=== PATIENT | male | born 1955 | race Caucasian/White ===

== ENCOUNTER 2019-01-11 08:26 | Inpatient (IN) | payer MEDICARE ==
[~2019-01-11] VITALS: Ht 177.8 cm; Wt 124.5 kg
[~2019-01-11 08:26] MED LIST: ALLO300 PO; AMLO5 PO; AMOCLA500 PO; Bumetanide1 MG PO; DOCU100 PO; FAMO20 PO; GLYMET5; LISI20; METPRE4DP PO; OXYACE5T PO; POTA10T PO; ROSI2; ROSU10TA
[2019-01-11] MEDS ORDERED: AMLO10 PO (09:28)
[2019-01-11 13:19] LABS: International Normalized Ratio 0.95; Prothrombin Time Results 10.1 Sec (9.7-11.5)
--- NOTE | 2019-01-11 13:24 | NUR ---
ARRIVAL PT ARRIVED TO UNIT APPROX. 0915 VIA WHEELCHAIR A DIRECT ADMISSION FROM [facility]. OREINTED PT TO ROOM, UNIT AND POLICIES. PT ABLE TO AMBUALTE FROM WHEELCHAIR TO BED AND TOLERATED WELL. PT DENIES ANY DIZZINESS OR LIGHTHEADEDNESS WITH THIS. ADDMISSION PROCESS COMPLETED. PT VITAL SIGNS STABLE, ALTHOUGH PT BLOOD PRESSURE ELEVATED. PRN MEDICAITON FOR HYPERTENSION GIVEN PER EMAR. CONTINUED TO MONITOR THIS THE DAY PROGRESSED. PT HEAR RHTYHM SINUS AMANDA IN 50'S. OCCASIONAL PT HEART RATE INCREASED TO 60'S AND OTHER TIMES PT HEART RATE DECREASES TO 40'S. PT HAS HOME CPAP WITH HIM. R.T. WAS IN TO REVIEW THIS. PT ABLE TO AMBUALTE AROUND ROOM. PT REPROTS HE FEELS THOUGH HIS HEART RATE IS RACING AND LIKE ITS POUNDING WHEN HE DOES ACTIVITY. BUT PT HEART RATE AVERAGES AROUND 50'S EVEN WITH ACTIVITIY. BED IN LOW POSITION, CALL LIGHT IN REACH AND PT DENIES ANY NEEDS AT THIS TIME. WILL CONTINUE TO MONITOR.
--- NOTE | 2019-01-11 15:20 | NUR ---
NOTE PT WAS ABLE TO PARTICIPATE WITH PHYSICAL THERAPY. THE P.T. WAS ABLE TO TAKE PT FOR WALK TO SEE HOW PT HEART RATE DOES WITH WALKING. PT WAS ONLY ABOUT TO TOLERATE WALKING AROUND FOR APPROX 5 MINUTES DUE TO SHORTNESS OF BREATH. DURING THERE FIVE MINUTES OF WALKING THE PHYSICIAL THERAPIST REPROTED THAT PT HEART RATE AVERAGED IN 50'S-60'S, ALTHOUGHT PT HEART RATE DROPPED DOWN TO 45 A FEW TIMES. THIS WAS VARIFIED ON THE TELEMETRY MONITORS WELL.
--- NOTE | 2019-01-11 17:40 | NUR ---
SHIFT SUMMARY PT PLEASANT, COOPERATIVE AND USES CALL LIGHT APPROPRIATELY. PT REMAINS A&OX4. PT BLOOD PRESSURE BEGAN TO COME DOWN LAST SBP WAS IN 150'S. HEART RHTYHM REMAINS SINUS BRADYCARDIA TO NSR. PT HEART RATE CURRENLTY IN 60'S WITH PT SITTING UP AT SIDE OF BED TALKING WITH FAMILY. PT REPROTS THAT HE HAD NOT TAKEN HIS DOSES OF LASIX FOR 11 DAYS. PT ALSO PREPORTS MISSING MORNING DOSE OF POTASSIUM. SO THESE MEDICATIONS WERE GIVEN PER EMAR. PT ABLE TO AMBULATE TO BATHROOM NEEDED AND TOLERATES WELL, BUT DOES REPORT SOB WITH ACTIVITY. PT REMAINS ON ROOM AIR. WHILE PT WAS SLEEPING PT HEART RATE WAS AVERAGING 40'S BUT DIPPED DOWN TO 38 A COUPLE OF TIME. FAMILY AT BEDSIDE. BED IN LOW POSITION, CALL LIGHT IN REACH AND PT DENIES ANY NEEDS AT THIS TIME. WILL CONTINUE TO MONITOR UNTIL HANDOFF TO NIGHTSHIFT RN.
[2019-01-11] MEDS ORDERED: ALBU90OI INH (19:17)
[2019-01-11] MEDS ORDERED: LOSA50 PO (19:18)
[2019-01-11] MEDS ORDERED: FARXIGA10 MG PO (19:19)
[2019-01-11] MEDS ORDERED: METF500C PO (19:20)
[2019-01-11] MEDS ORDERED: Pravachol40 MG PO (19:21)
[2019-01-11] MEDS ORDERED: GLIP5ER PO (19:34)
[2019-01-11] MEDS ORDERED: HYDR1TAB94 PO ×2 (19:35→19:36)
[2019-01-11] MEDS ORDERED: ASPI81CH PO (19:36)
[2019-01-11] MEDS ORDERED: FISH OIL 500 M1 EACH PO (19:37)
[2019-01-11] MEDS ORDERED: AZO CRANBERRY1 EAC1 PO (19:37)
--- NOTE | 2019-01-11 19:45 | NUR ---
PATIENT SBP 210 GIVEN HS NORVASC AND PRN HYDRALAZINE. PATIENT UP TO THE BATHROOM. PATIENT VERY SHORT OF BREATH. PATIENT STATES THAT HE WAS NOT ABLE TO TAKE HIS LASIX OVER THE LAST 11 DAYS DUE TO NOT BEING ABLE TO RENEW THE MED AT PHARMACY. PATIENT UNHAPPY ABOUT HAVING TO BE IN THE HOSPITAL.
--- NOTE | 2019-01-11 20:10 | NUR ---
NOTIFIED DR. JACK OF BLOOD PRESSURES. ASKED IF HE WANTED TO CHANGE MEDICATIONS. NO CHANGES AT THIS TIME.
--- NOTE | 2019-01-11 20:57 | NUR ---
PATIENT SBP DOWN TO 170'S. PATIENT DENIES ANY NEEDS AT THIS TIME. PATIENT HAS HOME TRILOGY ON.
--- NOTE | 2019-01-11 23:43 | NUR ---
PATIENT SITTING UP AT SIDE OF BED. STATES HE IS AWAKE NOW. GIVEN A HALF SANDWICH AT REQUEST. DENIES ANY OTHER NEEDS AT THIS TIME.
--- NOTE | 2019-01-12 01:03 | NUR ---
PATIENT LAYING IN BED WITH TRILOGY ON AND APPEARS TO BE SLEEPING COMFORTABLY.
[2019-01-12 04:30] LABS: BASOPHILS ABSOLUTE AUTO 0.05 K/mm3 (0.00-0.23); BASOPHILS PERCENT AUTO 1 % (0-2); EOSINOPHILS ABSOLUTE AUTO 0.23 K/mm3 (0.00-0.68); EOSINOPHILS PERCENT AUTO 3 % (0-6); Hematocrit 43.8 % (37.0-53.0); Hemoglobin 14.1 g/dL (13.5-17.5); IMMATURE GRAN ABSOLUTE AUTO 0.02 K/mm3 (0.00-0.10); IMMATURE GRAN PERCENT AUTO 0 % (0-1); LYMPHOCYTES ABSOLUTE AUTO 0.99 K/mm3 (0.84-5.20); LYMPHOCYTES PERCENT AUTO 12 % (21-46); MONOCYTES ABSOLUTE AUTO 0.62 K/mm3 (0.16-1.47); MONOCYTES PERCENT AUTO 7 % (4-13); Mean Corpuscular HGB 30.5 pg (26.0-34.0); Mean Corpuscular HGB Conc 32.2 g/dL (31.5-36.5); Mean Corpuscular Volume 95 fL (80-100); Mean Platelet Volume 11.1 fL (9.1-12.4); NEUTROPHILS ABSOLUTE AUTO 6.69 K/mm3 (1.96-9.15); NEUTROPHILS PERCENT AUTO 78 % (41-73); Platelet Count 123 K/mm3 (150-400); RDW Coefficient Variation 14.3 % (11.7-14.2); Red Blood Cell Count 4.63 M/mm3 (4.30-5.90)
[2019-01-12 04:50] LABS: Alanine Aminotransfer (ALT/SGP 29 U/L (12-78); Albumin, Blood 3.4 g/dL (3.4-5.0); Albumin/Globulin Ratio 1.2 (0.8-1.8); Alk Phos 94 U/L (50-136); Anion Gap 7 mmol/L (6-16); Aspartate Aminotrans (AST/SGOT 10 U/L (12-37); Bilirubin, Total 0.6 mg/dL (0.1-1.0); Blood Urea Nitrogen 25 mg/dL (8-24); Bun/Creatinine Ratio 25.9 (12.0-20.0); CO2, Blood 22 mmol/L (21-32); Calcium, Blood 8.8 mg/dL (8.5-10.1); Chloride, Blood 116 mmol/L (98-108); Creatinine, Blood 0.96 mg/dL (0.60-1.20); Globulin, Blood 2.8 g/dL (2.2-4.0); Glomerular Filtration Rate >60 (60-); Glucose, Blood 122 mg/dL (70-99); Magnesium, Blood 2.2 mg/dL (1.6-2.4); Phosphorus, Blood 4.1 mg/dL (2.5-4.9); Potassium, Blood 4.2 mmol/L (3.5-5.5); Sodium, Blood 145 mmol/L (136-145); Total Protein, Blood 6.2 g/dL (6.4-8.2); Uric Acid, Blood 5.7 mg/dL (3.5-7.2)
--- NOTE | 2019-01-12 05:28 | NUR ---
PATIENT UP AND DOWN IN ROOM INDEPENDENTLY IN ROOM. PATIENT HAS BEEN MAINTAINING MID TO HIGH 90'S ON ROOM AIR WHILE AWAKE AND CPAP WHEN ASLEEP. PATIENT SBP MAINTAINING BELOW 160 AT THIS TIME. PATIENT HAS ONLY RECIEVED ONE DOSE OF HYDRALAZINE. PATIENT DENIES ANY PAIN THROUGH THE NIGHT.
--- NOTE | 2019-01-12 07:51 | NUR ---
NURSING PCU DAYSHIFT: Assumed care of pt at approx 0700. A/O, pleasant, cooperative w/care. Denies any pain/discomfort at rest. Mild general weakness noted. Skin is fairly intact with small/weeping abrasion to R holbrook. Tele in place, afib w/HR 40-50's, murmur auscultated, no c/o CP/pressure, HTN noted prior to a.m. meds, 2+ BLE edema. L/S fairly cta t/o, reports of dyspnea w/exertion, occ productive cough, O2 sat mid 90's while wearing home CPAP at rest, continuous bedside O2 monitoring. Abd SNT, BT+, voiding w/o difficulty per pt. PIV x1, s/l. Pt denies any current needs or questions regarding plan of care. Call light in reach and pt is able to use w/o difficulty. Awaiting rounding from PMD, cont to monitor for any changes.
[2019-01-12 16:19] LABS: Prothrombin Time Results 10.6 Sec (9.7-11.5)
--- NOTE | 2019-01-12 17:04 | NUR ---
NURSING PCU DAYSHIFT SUMMARY: Pt has been in good spirits t/o the shift. Seen by cardiology this a.m., consent completed for pacer placement this afternoon. Though respiratory status stable at rest w/CPAP in place, pt experienced dyspnea w/minimal exertion and while on RA, O2 sat maintained >90%. Spent majority of day sitting on edge of bed visiting w/friends/family and/or talking on phone. Pt able to explain procedure fairly accurately and only expressed concern of post procedure pain management. At approx 1530, pt transported to HC via bed for pacer placement accompanied by HC staff x3. No s/s of acute distress at this time, denied any questions/needs. Awaiting post procedure arrival to unit for recovery. Will monitor until rpt is given to EMIGDIO RN.
--- NOTE | 2019-01-12 19:36 | NUR ---
PATIENT SBP UP IN THE 190'S GIVEN HYDRALAZINE PRN AND HS NORVASC EARLY. PATIENT DENIES ANY PAIN OR NEEDS. STATES HE FEELS MUCH BETTER THAN YESTERDAY. BREATHING IS EASIER AND IS NOT USING ACCESSORY MUSCLES TONIGHT. PATIENT REMAINS ON ROOM AIR. PACER SITE HAS DRESSING ON THAT IS INTACT WITH NO DRAINAGE AT THIS TIME. PATIENT HAS SOME SWELLING NOTED BY CLAVICLE ABOVE SITE AND DIRECTLY BELOW SITE. WILL CONTINUE TO MONITOR.
--- NOTE | 2019-01-13 04:04 | NUR ---
CALLED DR. ORO ABOUT PATIENT SWELLING AROUND PACEMAKER AND NEAR CLAVICLE WHICH HAS SEEMED TO NCREASE A LITTLE MORE. PATIENT COMPLAINING OF 10/10 PAIN AND STATES JUST THE FEEL OF THE GOWN ON HIS SHOULDER HURTS. ICE PLACE ON SITE TO HELP WITH SWELLING. DOCTOR STATES TO CONTINUE ICE AND GIVEN PRN'S FOR PAIN. SHE WILL HAVE SOMEONE COME LOOK AT IT THIS MORNING.
[2019-01-13 04:10] LABS: BASOPHILS ABSOLUTE AUTO 0.06 K/mm3 (0.00-0.23); BASOPHILS PERCENT AUTO 1 % (0-2); EOSINOPHILS ABSOLUTE AUTO 0.24 K/mm3 (0.00-0.68); EOSINOPHILS PERCENT AUTO 2 % (0-6); Hemoglobin 14.8 g/dL (13.5-17.5); IMMATURE GRAN ABSOLUTE AUTO 0.04 K/mm3 (0.00-0.10); IMMATURE GRAN PERCENT AUTO 0 % (0-1); LYMPHOCYTES ABSOLUTE AUTO 1.06 K/mm3 (0.84-5.20); LYMPHOCYTES PERCENT AUTO 10 % (21-46); MONOCYTES ABSOLUTE AUTO 0.82 K/mm3 (0.16-1.47); MONOCYTES PERCENT AUTO 8 % (4-13); Mean Corpuscular HGB Conc 32.2 g/dL (31.5-36.5); Mean Corpuscular Volume 93 fL (80-100); Mean Platelet Volume 10.6 fL (9.1-12.4); NEUTROPHILS ABSOLUTE AUTO 8.21 K/mm3 (1.96-9.15); NEUTROPHILS PERCENT AUTO 79 % (41-73); Platelet Count 166 K/mm3 (150-400); RDW Coefficient Variation 14.3 % (11.7-14.2); RDW Standard Deviation 49.6 fL (35.1-46.3); Red Blood Cell Count 4.93 M/mm3 (4.30-5.90); White Blood Cell Count 10.43 K/mm3 (4.00-11.30)
[2019-01-13 04:50] LABS: Alanine Aminotransfer (ALT/SGP 28 U/L (12-78); Albumin, Blood 3.8 g/dL (3.4-5.0); Albumin/Globulin Ratio 1.3 (0.8-1.8); Alk Phos 102 U/L (50-136); Anion Gap 7 mmol/L (6-16); Aspartate Aminotrans (AST/SGOT 14 U/L (12-37); Bilirubin, Total 0.8 mg/dL (0.1-1.0); Blood Urea Nitrogen 26 mg/dL (8-24); Bun/Creatinine Ratio 23.4 (12.0-20.0); CO2, Blood 26 mmol/L (21-32); Calcium, Blood 9.1 mg/dL (8.5-10.1); Chloride, Blood 112 mmol/L (98-108); Creatinine, Blood 1.11 mg/dL (0.60-1.20); Glomerular Filtration Rate >60 (60-); Glucose, Blood 107 mg/dL (70-99); Sodium, Blood 145 mmol/L (136-145); Total Protein, Blood 6.8 g/dL (6.4-8.2)
--- NOTE | 2019-01-13 05:05 | NUR ---
PATIENT STATES HIS PAIN IS NOW A 4/10 AND IS FEELING MUCH BETTER.
--- NOTE | 2019-01-13 06:28 | NUR ---
PATIENT SWELLING TO PACEMAKER SIGHT INCREASED THROUGH NIGHT. ICE IN PLACE. PAIN MANAGABLE AT THIS TIME. PATIENT DENIES ANY NEEDS AT THIS TIME. BP CONTINUES TO BE ELEVATED, HYDRALAZINE HAS BEEN GIVEN EVERY 4 HOURS TONIGHT. PATIENT UP TO THE BATHROOM INDEPENDENTLY AND MOVING AROUND IN BED INDEPENDENTLY.
--- NOTE | 2019-01-13 07:26 | NUR ---
NURSING PCU DAYSHIFT: Assumed care of pt at approx 0700. A/O, very pleasant, cooperative w/care. Mild general weakness though able to reposition and ambulate independently, call appropriately if assistance is needed. No skin breakdown noted, incision w/dressing in place to LCW from recent pacer placement. Very mild tissue inflammation surrounding site w/a small amount of bruising, no bleed or hematoma noted, pt c/o 6/10 LCW discomfort, LUE remains in sling. Tele in place, V-paced w/HR 60's, no c/o CP/pressure, SBP 170's prior to a.m. meds, trace BLE edema. L/S w/faint scattered wheeze and fine bibasilar crackles, dyspnea w/exertion which has improved from previous day, occ prod cough, O2 sat mid 90's, uses home CPAP during periods of rest. Abd SNT, BT+, voiding w/o difficulty. PIV x1, s/l. Pt denies any current needs or questions regarding plan of care. Pacer interrogation completed this a.m., update provided to social security benefits interviewer regarding pacer site. Pt OOB in chair, call light in reach, awaiting rounding from cardio and PMD, cont to monitor for any changes.
[2019-01-13 07:51] LABS: International Normalized Ratio 1.09; Prothrombin Time Results 11.5 Sec (9.7-11.5)
--- NOTE | 2019-01-13 17:25 | NUR ---
NURSING PCU DAYSHIFT SUMMARY: Pt has continued to do well t/o shift. BP has improved w/med changes. Seen by PMD and senior power scheduler, new d/o received. LCW pacer site remains stable w/no changes noted since initial assessment. Coumadin discontinued per senior power scheduler, anticoagulation will be discussed at f/u cardiology appt. Family currently at bedside. Pt has remained in good spirits t/o the shift and is anticipating discharge home tomorrow. Respiratory status continues to improve and O2 sats have been stable on RA. Plan for a curing room worker to meet w/pt in a.m. to provide coumadin/cardiac diet education. Pt denies any questions/needs at this time, call light in reach, cont to monitor until rpt is given to NOC RN.
[2019-01-14 04:15] LABS: BASOPHILS ABSOLUTE AUTO 0.05 K/mm3 (0.00-0.23); BASOPHILS PERCENT AUTO 1 % (0-2); EOSINOPHILS ABSOLUTE AUTO 0.27 K/mm3 (0.00-0.68); EOSINOPHILS PERCENT AUTO 3 % (0-6); Hematocrit 46.2 % (37.0-53.0); Hemoglobin 14.8 g/dL (13.5-17.5); IMMATURE GRAN ABSOLUTE AUTO 0.03 K/mm3 (0.00-0.10); IMMATURE GRAN PERCENT AUTO 0 % (0-1); LYMPHOCYTES ABSOLUTE AUTO 1.14 K/mm3 (0.84-5.20); LYMPHOCYTES PERCENT AUTO 13 % (21-46); MONOCYTES ABSOLUTE AUTO 0.78 K/mm3 (0.16-1.47); MONOCYTES PERCENT AUTO 9 % (4-13); Mean Corpuscular HGB 30.3 pg (26.0-34.0); Mean Corpuscular Volume 95 fL (80-100); Mean Platelet Volume 10.7 fL (9.1-12.4); NEUTROPHILS ABSOLUTE AUTO 6.22 K/mm3 (1.96-9.15); NEUTROPHILS PERCENT AUTO 73 % (41-73); Platelet Count 143 K/mm3 (150-400); RDW Coefficient Variation 14.5 % (11.7-14.2); RDW Standard Deviation 50.5 fL (35.1-46.3); Red Blood Cell Count 4.89 M/mm3 (4.30-5.90); White Blood Cell Count 8.49 K/mm3 (4.00-11.30)
[2019-01-14 04:30] LABS: International Normalized Ratio 1.05; Prothrombin Time Results 11.1 Sec (9.7-11.5)
[2019-01-14 04:44] LABS: Albumin, Blood 3.5 g/dL (3.4-5.0); Albumin/Globulin Ratio 1.1 (0.8-1.8); Bilirubin, Total 0.7 mg/dL (0.1-1.0); Bun/Creatinine Ratio 26.6 (12.0-20.0); Calcium, Blood 8.9 mg/dL (8.5-10.1); Creatinine, Blood 1.39 mg/dL (0.60-1.20); Globulin, Blood 3.1 g/dL (2.2-4.0); Potassium, Blood 4.2 mmol/L (3.5-5.5); Total Protein, Blood 6.6 g/dL (6.4-8.2)
--- NOTE | 2019-01-14 05:33 | NUR ---
PATIENT TIRED TONIGHT AND HAS BEEN ABLE TO SLEEP WELL TONIGHT. PATIENT NEEDED HYDRALAZINE THIS AM DUE TO SBP OF 216. PATIENT DENIES ANY PAIN OR NEEDS. PATIENT INDEPENDENT IN BED AND ROOM. CALL LIGHT WITH IN REACH.
--- NOTE | 2019-01-14 08:08 | NUR ---
pt sitting up in bed watching tv. states he is doing ok, sleeping some, pacer site is painful, cooperative with care, follows commands well, lungs are clear in upper fair, dim in bases, resp even and unlabored at rest, was reported that he becomes dyspnic with activity, pt states sob comes and goes, is currently on r/a, reports a productive cough but doesn't know what color it is, hrr, tele in place running vpaced at 61 at this time, +1 edema noted to b/l le, ppp+2, cap refill <3sec, vs stable afebrile, iv site is clear and patent, btx4, abd round soft nontender, pt states he has some kidney pain at times, voids without diff, skin c/w/d except pacer site to lcw has a dressing in place, some swelling noted, bruising noted, reported that Dr. meza, ac farmer, call light in reach.
--- NOTE | 2019-01-14 11:39 | NUR ---
pt has been discharged to home, his is here, went over discharge instructions with him and her, they verbalized understanding. iv x2 removed intact, left via wheelchair with space control supervisor and in attendence.
[2019-01-14] MEDS ORDERED: ATEN25 PO (16:54)
[2019-01-14] MEDS ORDERED: HYDRA25 PO (16:55)
[2019-01-14] MEDS ORDERED: Isosorbide Mono30 MG PO (16:56)
[2019-01-14] MEDS ORDERED: METO2.5 PO (16:57)
[2019-01-14] MEDS ORDERED: SPIR25 PO (16:58)
--- NOTE | 2019-01-14 18:20 | NUR ---
PT HAS BEEN DISCHARGED TO HOME, WENT OVER ALL DISCHARGE INSTRUCTIONS, INCLUDING PACER INSTRUCTIONS AND APPT, HE HAS PRINTED MATERIAL FOR NEW MEDICATIONS, IV REMOVED INTACT, HAS AN ARM SLING FOR HIS LEFT ARM, NEW MEDICATIONS WERE FAXED TO [facility]. WAITING FOR RIDE, CALL LIGHT IN REACH.
--- NOTE | 2019-01-14 19:00 | NUR ---
PT LEFT VIA AMBULATION HIS RIDE IS HERE. HE HAS ALL BELONGINGS.
== END 2019-01-14 18:17 | disposition home health service (06) | DRG 242 ==
LOC: PCU 08:26
PROVIDERS: Internal Medicine Cardiovascular Disease; ADMIT Hospitalist
PROC: 0JH604Z Insertion of Pacemaker, Single Chamber into Chest Subcutaneous Tissue and Fascia, Open Approach (ICD-10-PCS; principal; 2019-01-12)
PROC: 02HK3JZ Insertion of Pacemaker Lead into Right Ventricle, Percutaneous Approach (ICD-10-PCS; 2019-01-12)
DX: I48.91 Unspecified atrial fibrillation (principal); I50.33 Acute on chronic diastolic (congestive) heart failure; I13.0 Hypertensive heart and chronic kidney disease with heart failure and stage 1 through stage 4 chronic kidney disease, or unspecified chronic kidney disease; I49.5 Sick sinus syndrome; N18.9 Chronic kidney disease, unspecified; E11.22 Type 2 diabetes mellitus with diabetic chronic kidney disease; E66.01 Morbid (severe) obesity due to excess calories; G47.33 Obstructive sleep apnea (adult) (pediatric); I35.0 Nonrheumatic aortic (valve) stenosis; D69.6 Thrombocytopenia, unspecified; M19.90 Unspecified osteoarthritis, unspecified site; J44.9 Chronic obstructive pulmonary disease, unspecified; E78.5 Hyperlipidemia, unspecified; Z88.8 Allergy status to other drugs, medicaments and biological substances; Z79.84 Long term (current) use of oral hypoglycemic drugs; Z79.82 Long term (current) use of aspirin; Z79.4 Long term (current) use of insulin; Z79.899 Other long term (current) drug therapy; Z68.39 Body mass index [BMI] 39.0-39.9, adult
CPT/HCPCS: 33207; 36415; 71045; 71046; 80053; 82947; 83735; 83880; 84100; 84443; 84484; 84550; 85025; 85610; 85730; 86850; 86900; 86901; 93306; 94762; 97161; 97530; 99152; 99153; C1786; C1898; J0360; J0690; J1644; J1940; J2250; J3010; J7030; J7040

== ENCOUNTER 2020-04-13 11:43 | Day surgery (SDC) | payer MEDICARE ==
[~2020-04-13] VITALS: Ht 177.8 cm; Wt 129.4 kg
[~2020-04-13 11:43] MED LIST changes: +ALBU90OI INH; +AMLO10 PO; +ASPI81CH PO; +ASPIR 8181 M1 PO; +ATEN25 PO; +AZO CRANBERRY1 EAC1 PO; +FARXIGA10 MG PO; +FISH OIL 500 M1 EACH PO; +FURO40 PO; +GLIP10 PO; +GLIP5ER PO; +GLUCOPHAGE1000 M1 PO; +HYDR1TAB94 PO; +HYDRA25 PO; +Isosorbide Mono30 MG PO; +LOSA50 PO; +LOSARTAN POTAS100 M1 PO; +METF500C PO; +METO2.5 PO; +Norco 5-325 Ta1 EACH PO; +Potassium Chlo10 ME1 PO; +Pravachol40 MG PO; +SPIR25 PO; +STIOLTO RESPIMAT4 G1 INH; +Vitamin D1000 UNI1 PO
== END 2020-04-13 14:10 | disposition home or self-care (01) ==
LOC: ORSCSDS 11:43
PROVIDERS: Internal Medicine Gastroenterology
PROC: 0DBN8ZX Excision of Sigmoid Colon, Via Natural or Artificial Opening Endoscopic, Diagnostic (ICD-10-PCS; principal; 2020-04-13 13:15)
PROC: 0DBP8ZX Excision of Rectum, Via Natural or Artificial Opening Endoscopic, Diagnostic (ICD-10-PCS; principal; 2020-04-13 13:15)
PROC: 3E0H87Z Introduction of Electrolytic and Water Balance Substance into Lower GI, Via Natural or Artificial Opening Endoscopic (ICD-10-PCS; principal; 2020-04-13 13:15)
PROC: 0DBL8ZX Excision of Transverse Colon, Via Natural or Artificial Opening Endoscopic, Diagnostic (ICD-10-PCS; principal; 2020-04-13 13:15)
PROC: 0DBK8ZX Excision of Ascending Colon, Via Natural or Artificial Opening Endoscopic, Diagnostic (ICD-10-PCS; principal; 2020-04-13 13:15)
DX: Z12.11 Encounter for screening for malignant neoplasm of colon (principal); D12.2 Benign neoplasm of ascending colon; D12.3 Benign neoplasm of transverse colon; D12.8 Benign neoplasm of rectum; K64.8 Other hemorrhoids; J44.9 Chronic obstructive pulmonary disease, unspecified; G47.33 Obstructive sleep apnea (adult) (pediatric); E11.9 Type 2 diabetes mellitus without complications; E78.5 Hyperlipidemia, unspecified; F17.210 Nicotine dependence, cigarettes, uncomplicated; Z79.82 Long term (current) use of aspirin; Z79.84 Long term (current) use of oral hypoglycemic drugs; Z79.899 Other long term (current) drug therapy
CPT/HCPCS: 82947; 88305; J2704; J7120

== ENCOUNTER → 2020-06-22 | Outpatient (CLI) | payer OTHER ==
[~2020-06-22] MED LIST changes: +ALLO100 PO; +CILO100 PO; +CLOP75 PO; +DEXL60CA3 PO
== END | disposition home or self-care (01) ==
LOC: LAB SHORT 16:04 → LAB EV 16:04
DX: R79.89 Other specified abnormal findings of blood chemistry (principal)
CPT/HCPCS: 87086

== ENCOUNTER 2020-08-14 06:38 | Day surgery (SDC) | payer OTHER ==
[~2020-08-14] VITALS: Ht 177.8 cm; Wt 127.0 kg
[~2020-08-14 06:38] MED LIST changes: -ALLO100 PO; -CILO100 PO; -CLOP75 PO; -DEXL60CA3 PO
--- NOTE | 2020-08-14 10:07 | NUR ---
PT RETURNED TO RECOVERY ROOM IN BED. RIGHT FEMORAL GROIN SITE SOFT NON-TENDER WITH NO HEMATOMA, NO PULSATILE BLEEDING AND INTACT DRESSING. PT DENIES CHEST PAIN. CALL LIGHT IN REACH.
--- NOTE | 2020-08-14 10:36 | NUR ---
DR GUADALUPE IN ROOM TO SEE PT.
[2020-08-14] MEDS ORDERED: CLOP75 PO (10:41)
--- NOTE | 2020-08-14 11:53 | NUR ---
DISCHARGE INSTRUCTIONS REVIEWED ALL QUESTIONS ANSWERED.
--- NOTE | 2020-08-14 11:54 | NUR ---
NO CHANGES TO R FEMORAL GROIN SITE; SOFT NON-TENDER WITH NO HEMATOMA, NO PULSATILE BLEEDING AND INTACT DRESSING.
--- NOTE | 2020-08-14 12:44 | NUR ---
20 G IV DISCONTINUED FROM LEFT AC WITH INTACT CANNULA. PT ESCORTED OUT VIA WHEELCHAIR ESCORT.
[2020-10-03] MEDS ORDERED: CILO100 PO (14:55)
[2020-10-03] MEDS ORDERED: FARXIGA10 MG PO (14:55)
[2020-10-03] MEDS ORDERED: DEXL60CA3 PO (14:56)
[2020-10-03] MEDS ORDERED: GLIP5ER PO (14:56)
[2020-10-03] MEDS ORDERED: FURO40 PO (14:56)
== END 2020-08-14 12:45 | disposition home or self-care (01) ==
LOC: MHTC 06:38
DX: I70.213 Atherosclerosis of native arteries of extremities with intermittent claudication, bilateral legs (principal)
CPT/HCPCS: 37221; 37227; 75625; 75716; 75774; 76937; 82947; 85347; 99152; 99153; C1714; C1760; C1769; C1874; C1876; C1884; C1887; C1894; C2623; J1644; J2250; J3010; J7030; Q9967

== ENCOUNTER 2020-10-04 08:36 | Day surgery (SDC) | payer OTHER ==
[~2020-10-04] VITALS: Ht 177.8 cm; Wt 129.5 kg
[~2020-10-04 08:36] MED LIST changes: +CILO100 PO; +CLOP75 PO; +DEXL60CA3 PO
[2020-10-04] MEDS ORDERED: ALLO100 PO (09:19)
--- NOTE | 2020-10-04 09:32 | NUR ---
PATIENT ARRIVED VIA WHEELCHAIR, ADMISSION COMPLETED. PIV STARTED TO THE RIGHT FOREARM. PATIENT BROUGHT OWN CPAP AND RN AT THE BEDSIDE TO GO OVER THE CPAP SETUP WITH THE PATIENT.
--- NOTE | 2020-10-04 13:13 | NUR ---
PATEINT RETURNED FROM THE CATHLAB S/P PERIPHERAL INTERVENTION TO THE RIGHT LEG. LEFT GROIN ACCESS CLOSED WITH CLOSURE DEVICE. PAITENT PLACED ON THE MONITOR AND SBAR RECEIVED FROM AVELINO OVIEDO. VVS. NO PAIN NOTED. TRAY TO THE BEDSIDE AND PAITENT DRINKING WATER WITH ASSISTANCE. HOB FLAT. BED IN REVERSE TRENDELENBERG. CALL LIGHT IN REACH.
--- NOTE | 2020-10-04 14:00 | NUR ---
1345 PATIENT REPOSITIONED UP IN THE BED AND HOB UP 30 DEGREES. LUNCH TRAY SERVED AND PATIENT FED SELF.
--- NOTE | 2020-10-04 14:45 | NUR ---
PATIENT ALLOWED TO SIT UP ON THE SIDE OF THE BED AND DANGLE LEGS. LEFT GROIN SITE UNCHANGED. CDI, TEGADERM IN PLACE. NO HEMATOMA AND NO BLEEDING. NO PAIN NOTED.
--- NOTE | 2020-10-04 14:47 | NUR ---
PATIENT IS REVIEWING DISCHARGE INSTRUCTIONS AND ALL QUESTIONS ANSWERED.
--- NOTE | 2020-10-04 14:54 | NUR ---
PATEINT UP AND DRESSING. PIV REMOVED, PRESSURE DRESSING APPLIED.
--- NOTE | 2020-10-04 15:13 | NUR ---
REVIEWED ALL DISCHARGED PAPERWORK. SIGNATURES OBTAINED. PATIENT DRESSED AND PIV REMOVED. CALLED FOR WHEELCHAIR TO THE ENTRANCE WHERE HI BROTHER IS PICKING HIM UP. FOLLOW UP APPOINTMENT IN 4 WEEKS.
== END 2020-10-04 16:18 | disposition home or self-care (01) ==
LOC: MHTC 08:36
DX: E11.51 Type 2 diabetes mellitus with diabetic peripheral angiopathy without gangrene (principal); I70.221 Atherosclerosis of native arteries of extremities with rest pain, right leg; I70.212 Atherosclerosis of native arteries of extremities with intermittent claudication, left leg; J44.9 Chronic obstructive pulmonary disease, unspecified; I48.91 Unspecified atrial fibrillation; E11.22 Type 2 diabetes mellitus with diabetic chronic kidney disease; N18.9 Chronic kidney disease, unspecified; I25.10 Atherosclerotic heart disease of native coronary artery without angina pectoris; E78.5 Hyperlipidemia, unspecified; M10.9 Gout, unspecified; E11.40 Type 2 diabetes mellitus with diabetic neuropathy, unspecified; G47.33 Obstructive sleep apnea (adult) (pediatric); I49.5 Sick sinus syndrome; F17.200 Nicotine dependence, unspecified, uncomplicated; E66.01 Morbid (severe) obesity due to excess calories; Z95.0 Presence of cardiac pacemaker; Z88.8 Allergy status to other drugs, medicaments and biological substances; Z91.013 Allergy to seafood; Z79.82 Long term (current) use of aspirin; Z79.84 Long term (current) use of oral hypoglycemic drugs; Z68.41 Body mass index [BMI] 40.0-44.9, adult
CPT/HCPCS: 37225; 37228; 75716; 75774; 76937; 85347; 99152; 99153; C1714; C1725; C1757; C1760; C1769; C1884; C1887; C1894; C2623; C9772; J1644; J2250; J3010; J7030; J7050; Q9967

== ENCOUNTER 2021-02-14 07:13 | Day surgery (SDC) | payer OTHER ==
[~2021-02-14] VITALS: Ht 177.8 cm; Wt 130.0 kg
[~2021-02-14 07:13] MED LIST changes: +ALLO100 PO
[2021-02-14] MEDS ORDERED: OMEGA-3 FISH O1 EAC5 PO (07:27)
[2021-02-14] MEDS ORDERED: Crestor40 MG PO (07:27)
--- NOTE | 2021-02-14 08:41 | NUR ---
PRE ORDERS: PRE MEDICATED FOR ALLERGIES PER ORDERED PEPCID 20 MG IV BENADRYL 25 MG IV
[2021-02-14 10:54] LABS: PCO2 Arterial 36.5 mmHg (35-45); PO2 Arterial 76.5 mmHg (80-100); pH Blood Arterial 7.31 (7.35-7.45)
--- NOTE | 2021-02-14 12:15 | NUR ---
3mL AIR RELEASED FROM TR BAND. NO BLEEDING, OOZING OR HEMATOMA NOTED.
--- NOTE | 2021-02-14 12:30 | NUR ---
ALL AIR RELEASED FROM TR BAND. NO BLEEDING, OOZING OR HEMATOMA NOTED. VT DENIES ANY NEEDS AT THIS TIME. VSS. CARLOS CONTINUE TO MONITOR.
--- NOTE | 2021-02-14 14:20 | NUR ---
DISCHARGE PT AMBULATED TO RESTROOM AND DRESSED SELF WITH NO COMPLICATIONS. TR BAND REMOVED. NO BLEEDING, OOZING OR HEMATOMA NOTED. SITE CLEANED AND CLOTH DOT DRESSING APPLIED. PT STATES HIS UNDERSTANDING OF SITE CARE AND DC INSTRUCTIONS AND DENIES ANY QUESTIONS OR CONCERNS. PT DENIES ANY CP. IV DCD WITH CATH INTACT. PT TAKEN TO EXIT VIA WHEELCHAIR WHERE FRIEND WAS WAITING WITH VEHICLE.
== END 2021-02-14 15:27 | disposition home or self-care (01) ==
LOC: MHTC 07:13
PROVIDERS: Internal Medicine Cardiovascular Disease
DX: I25.118 Atherosclerotic heart disease of native coronary artery with other forms of angina pectoris (principal); I35.0 Nonrheumatic aortic (valve) stenosis; E11.22 Type 2 diabetes mellitus with diabetic chronic kidney disease; I13.0 Hypertensive heart and chronic kidney disease with heart failure and stage 1 through stage 4 chronic kidney disease, or unspecified chronic kidney disease; I50.9 Heart failure, unspecified; N18.9 Chronic kidney disease, unspecified; I48.20 Chronic atrial fibrillation, unspecified; E78.5 Hyperlipidemia, unspecified; E66.01 Morbid (severe) obesity due to excess calories; G47.33 Obstructive sleep apnea (adult) (pediatric); E11.51 Type 2 diabetes mellitus with diabetic peripheral angiopathy without gangrene; J44.9 Chronic obstructive pulmonary disease, unspecified; Z91.013 Allergy to seafood; Z88.8 Allergy status to other drugs, medicaments and biological substances; Z79.82 Long term (current) use of aspirin; Z79.02 Long term (current) use of antithrombotics/antiplatelets; Z79.84 Long term (current) use of oral hypoglycemic drugs; Z95.0 Presence of cardiac pacemaker; Z68.41 Body mass index [BMI] 40.0-44.9, adult
CPT/HCPCS: 82803; 82947; 85347; 93458; 99152; 99153; C1769; C1894; C8929; J1200; J1644; J2250; J3010; J7030; J7050; Q9957; Q9967

== ENCOUNTER 2024-02-10 10:59 | Emergency (ER) | payer OTHER ==
[~2024-02-10] VITALS: Ht 177.8 cm; Wt 128.8 kg
[2024-02-10 11:02] VITALS: BP 120/80
[2024-02-10 12:54] LABS: BASOPHILS ABSOLUTE AUTO 0.05 K/mm3 (0.00-0.23); BASOPHILS PERCENT AUTO 0 % (0-2); EOSINOPHILS ABSOLUTE AUTO 0.22 K/mm3 (0.00-0.68); EOSINOPHILS PERCENT AUTO 2 % (0-6); Hematocrit 28.4 % (37.0-53.0); Hemoglobin 9.1 g/dL (13.5-17.5); IMMATURE GRAN ABSOLUTE AUTO 0.15 K/mm3 (0.00-0.10); IMMATURE GRAN PERCENT AUTO 1 % (0-1); LYMPHOCYTES ABSOLUTE AUTO 0.64 K/mm3 (0.84-5.20); LYMPHOCYTES PERCENT AUTO 6 % (21-46); MONOCYTES ABSOLUTE AUTO 0.71 K/mm3 (0.16-1.47); MONOCYTES PERCENT AUTO 6 % (4-13); Mean Corpuscular HGB 30.6 pg (26.0-34.0); Mean Corpuscular Volume 96 fL (80-100); Mean Platelet Volume 12.3 fL (9.1-12.4); NEUTROPHILS ABSOLUTE AUTO 9.79 K/mm3 (1.96-9.15); NEUTROPHILS PERCENT AUTO 85 % (41-73); Platelet Count 158 K/mm3 (150-400); RDW Coefficient Variation 14.8 % (11.7-14.2); RDW Standard Deviation 50.7 fL (35.1-46.3); Red Blood Cell Count 2.97 M/mm3 (4.30-5.90); White Blood Cell Count 11.56 K/mm3 (4.00-11.30)
[2024-02-10 13:03] LABS: Albumin, Blood 3.2 g/dL (3.4-5.0); Albumin/Globulin Ratio 0.9 (0.8-1.8); Bilirubin, Total 0.4 mg/dL (0.1-1.0); Bun/Creatinine Ratio 39.3 (12.0-20.0); Calcium, Blood 9.3 mg/dL (8.5-10.1); Creatinine, Blood 2.62 mg/dL (0.60-1.20); Globulin, Blood 3.4 g/dL (2.2-4.0); Potassium, Blood 5.5 mmol/L (3.5-5.5); Total Protein, Blood 6.6 g/dL (6.4-8.2)
== END 2024-02-10 14:45 | disposition left against medical advice (07) ==
LOC: ER 10:59
PROVIDERS: Physician Assistant
DX: R07.9 Chest pain, unspecified (principal); K92.1 Melena; Z53.21 Procedure and treatment not carried out due to patient leaving prior to being seen by health care provider; J98.8 Other specified respiratory disorders; I70.90 Unspecified atherosclerosis
CPT/HCPCS: 71046; 80053; 83690; 84484; 85025; 93005; 93010

== ENCOUNTER → 2024-02-10 | Outpatient (CLI) | payer OTHER ==
[~2024-02-10] MED LIST changes: +Crestor40 MG PO; +OMEGA-3 FISH O1 EAC5 PO
[2024-02-10 08:37] LABS: BASOPHILS ABSOLUTE AUTO 0.07 K/mm3 (0.00-0.23); BASOPHILS PERCENT AUTO 1 % (0-2); EOSINOPHILS ABSOLUTE AUTO 0.31 K/mm3 (0.00-0.68); EOSINOPHILS PERCENT AUTO 3 % (0-6); Hematocrit 29.7 % (37.0-53.0); Hemoglobin 9.6 g/dL (13.5-17.5); IMMATURE GRAN ABSOLUTE AUTO 0.17 K/mm3 (0.00-0.10); IMMATURE GRAN PERCENT AUTO 2 % (0-1); LYMPHOCYTES ABSOLUTE AUTO 0.96 K/mm3 (0.84-5.20); LYMPHOCYTES PERCENT AUTO 8 % (21-46); MONOCYTES ABSOLUTE AUTO 0.92 K/mm3 (0.16-1.47); MONOCYTES PERCENT AUTO 8 % (4-13); Mean Corpuscular HGB 31.1 pg (26.0-34.0); Mean Corpuscular HGB Conc 32.3 g/dL (31.5-36.5); Mean Corpuscular Volume 96 fL (80-100); Mean Platelet Volume 11.7 fL (9.1-12.4); NEUTROPHILS ABSOLUTE AUTO 9.26 K/mm3 (1.96-9.15); NEUTROPHILS PERCENT AUTO 79 % (41-73); NRBC ABSOLUTE 0.02 K/mm3 (0.00-0.02); NRBC Auto 0.2 /100 WBC (0.0-0.2); Platelet Count 153 K/mm3 (150-400); RDW Standard Deviation 51.1 fL (35.1-46.3); Red Blood Cell Count 3.09 M/mm3 (4.30-5.90); White Blood Cell Count 11.69 K/mm3 (4.00-11.30)
[2024-02-10 08:48] LABS: Albumin, Blood 3.4 g/dL (3.4-5.0); Bilirubin, Total 0.3 mg/dL (0.1-1.0); Bun/Creatinine Ratio 36.6 (12.0-20.0); Calcium, Blood 9.1 mg/dL (8.5-10.1); Creatinine, Blood 2.84 mg/dL (0.60-1.20); Globulin, Blood 3.5 g/dL (2.2-4.0); Potassium, Blood 5.1 mmol/L (3.5-5.5); Total Protein, Blood 6.9 g/dL (6.4-8.2)
== END | disposition home or self-care (01) ==
LOC: LAB SHORT 08:33 → LAB 08:33
PROVIDERS: Physician Assistant
DX: R07.9 Chest pain, unspecified (principal)
CPT/HCPCS: 80053; 84484; 85025

== ENCOUNTER 2024-09-09 12:48 | Day surgery (SDC) | payer OTHER ==
[~2024-09-09] VITALS: Ht 177.8 cm; Wt 124.7 kg
[~2024-09-09 12:48] MED LIST changes: +ANORO ELLIPTA1 EACH INH; +ATOR80 PO; +Acerola C500 MG PO; +Amlodipine Besyl5 MG PO; +CRANBERRY215 MG; +ERGO400; +FERSU300 PO; +FISH OIL 1,0001 EA10 PO; +FURO20 PO; +INSULANPEN SC; +Lactated Ringer's 1,000 ML IV SCH; +METAMUCIL POWD798 GM PO; +ZINC15
[2024-09-09 13:21] VITALS: BP 153/68
[2024-09-09] MEDS ORDERED: propofoL 20 ML IV ONE (13:42)
--- NOTE | 2024-09-09 13:46 | NUR ---
09/09/24 1346 Harshal Matthews MONITOR INTACT WITH CONTINUOUS PULSE OXIMETRY, CONTINUOUS END TITAL CO2, 3-LEAD EKG AND INTERMITTENT BLOOD PRESSURE.Bite Block Placed O2 VIA POM INTACT THROUGHOUT SEDATION/PROCEDURE. ANESTHESIA PER DR. CODY
[2024-09-09 14:30] VITALS: BP 148/84
[2024-09-09 14:41] VITALS: BP 160/67
--- NOTE | 2024-09-09 14:47 | NUR ---
Discharge instructions reviewed with patient. Patient verbalizes understanding. Copy given to patient to take home. Patient States Post-Procedure ride home has been arranged. Discharged via wheelchair to private car for ride home.
== END 2024-09-09 23:00 | disposition home or self-care (01) ==
LOC: ORSCMMR 12:48
PROVIDERS: Internal Medicine Gastroenterology
PROC: 0DJ08ZZ Inspection of Upper Intestinal Tract, Via Natural or Artificial Opening Endoscopic (ICD-10-PCS; principal; 2024-09-09 14:15)
PROC: 0DBM8ZX Excision of Descending Colon, Via Natural or Artificial Opening Endoscopic, Diagnostic (ICD-10-PCS; principal; 2024-09-09 14:15)
PROC: 0DBH8ZX Excision of Cecum, Via Natural or Artificial Opening Endoscopic, Diagnostic (ICD-10-PCS; principal; 2024-09-09 14:15)
PROC: 0DBP8ZX Excision of Rectum, Via Natural or Artificial Opening Endoscopic, Diagnostic (ICD-10-PCS; principal; 2024-09-09 14:15)
PROC: 0DBN8ZX Excision of Sigmoid Colon, Via Natural or Artificial Opening Endoscopic, Diagnostic (ICD-10-PCS; principal; 2024-09-09 14:15)
DX: D50.9 Iron deficiency anemia, unspecified (principal); K92.1 Melena; R13.10 Dysphagia, unspecified; K63.5 Polyp of colon; D12.4 Benign neoplasm of descending colon; D12.5 Benign neoplasm of sigmoid colon; K62.1 Rectal polyp; Z86.0100 Personal history of colon polyps, unspecified; I25.10 Atherosclerotic heart disease of native coronary artery without angina pectoris; G47.33 Obstructive sleep apnea (adult) (pediatric); J44.9 Chronic obstructive pulmonary disease, unspecified; I12.9 Hypertensive chronic kidney disease with stage 1 through stage 4 chronic kidney disease, or unspecified chronic kidney disease; E11.22 Type 2 diabetes mellitus with diabetic chronic kidney disease; N18.4 Chronic kidney disease, stage 4 (severe); E78.5 Hyperlipidemia, unspecified; Z95.0 Presence of cardiac pacemaker; I48.91 Unspecified atrial fibrillation; E66.01 Morbid (severe) obesity due to excess calories; Z68.39 Body mass index [BMI] 39.0-39.9, adult; Z85.048 Personal history of other malignant neoplasm of rectum, rectosigmoid junction, and anus; F17.210 Nicotine dependence, cigarettes, uncomplicated; Z79.84 Long term (current) use of oral hypoglycemic drugs; Z79.4 Long term (current) use of insulin; Z79.899 Other long term (current) drug therapy
CPT/HCPCS: 82947; 88305; J2704; J7120